=== PATIENT | male | born 1985 | race Caucasian/White ===

== ENCOUNTER 2017-03-11 10:17 | Inpatient (IN) | payer OTHER ==
[~2017-03-11 10:17] MED LIST: PROPOFOL 200 MG INJ
[2017-03-11] MEDS: LACTATED RINGER'S 1,000 ML IV* (11:00)
[2017-03-11] MEDS: CEFAZOLIN 2 GM/50 ML (PMX) 50 ML IVPB (11:00)
[2017-03-11] MEDS ORDERED: SODIUM CL BACTERIOSTATIC 30 ML INJ (11:46)
[2017-03-11] MEDS ORDERED: GELATIN SIZE 100 SPONGE (11:46)
[2017-03-11] MEDS ORDERED: HEPARIN 1000 UNITS/ML 10 ML INJ (11:47)
[2017-03-11] MEDS ORDERED: MIDAZOLAM 1 MG/ML 2 ML INJ (12:07)
[2017-03-11] MEDS ORDERED: ROCURONIUM 50 MG INJ ×2 (12:07→13:19)
[2017-03-11] MEDS ORDERED: ONDANSETRON 4 MG INJ (12:07)
[2017-03-11] MEDS ORDERED: HYDROmorphONE 2 MG/ML SYG (12:07)
[2017-03-11] MEDS ORDERED: METOCLOPRAMIDE 10 MG INJ (12:07)
[2017-03-11] MEDS ORDERED: ROPIVACAINE 0.5 % 30 ML VIAL (12:10)
[2017-03-11] MEDS ORDERED: FENTAnyl 50 MCG/ML VIAL ×3 (12:37→17:00)
[2017-03-11] MEDS ORDERED: SUCCINYLCHOLINE CHLORIDE 100 MG/5 ML SYG IV (13:18)
[2017-03-11] MEDS: CEFAZOLIN 1 GM INJ (13:25)
[2017-03-11] MEDS: HEPARIN 1000 UNITS/ML 10 ML INJ (13:25)
[2017-03-11] MEDS: THROMBIN 5000 UNIT VIAL (13:25)
[2017-03-11] MEDS: SURGIFOAM POWDER 1 GM KIT (13:25)
[2017-03-11] MEDS ORDERED: ACETAMINOPHEN 1000MG/100ML IV 100 ML (14:28)
[2017-03-11] MEDS ORDERED: DIPHENHYDRAMINE 50 MG INJ IV (14:30)
[2017-03-11] MEDS ORDERED: HYDROmorphONE (0.2 MG/ML) 10ML SYG IV (14:30)
[2017-03-11] MEDS: BUPIVACAINE 0.25%/EPI (SDV) 30 ML INJ (15:37)
[2017-03-11] MEDS ORDERED: EPHEDrine SULFATE 50 MG/5 ML SYG (15:37)
[2017-03-11] MEDS ORDERED: AL HYDROX/MG HYDROX/SIMETH 30 ML CUP PO (16:00)
[2017-03-11] MEDS ORDERED: NALOXONE (0.4 MG/ML) INJ IV (16:00)
[2017-03-11] MEDS ORDERED: ONDANSETRON 4 MG INJ IV (16:00)
[2017-03-11] MEDS: MEPERIDINE 25 MG INJ IV (16:12)
[2017-03-11] MEDS: ONDANSETRON 4 MG INJ IV (16:18)
[2017-03-11] MEDS: HYDROmorphONE (0.2 MG/ML) 10ML SYG IV ×4 (16:19→16:43)
[2017-03-11] MEDS: HYDROmorphONE 0.2 MG/ML PCA IV ×2 (16:49→21:34)
[2017-03-11] MEDS ORDERED: FENTAnyl 50 MCG/ML VIAL IV (17:00)
[2017-03-11] MEDS: FENTAnyl 50 MCG/ML VIAL IV ×4 (17:02→18:30)
[2017-03-11] MEDS: CEFAZOLIN 1 GM/50 ML (PMX) 50 ML IVPB (17:06)
[2017-03-11] MEDS: D5W-0.45 NACL + KCL 20 MEQ 1,000 ML IV (20:03)
[2017-03-11] MEDS: DOCUSATE SODIUM 100 MG CAP PO (21:00)
[2017-03-11] MEDS: DIPHENHYDRAMINE 50 MG INJ IV (21:05)
[2017-03-11] MEDS: HYDROCODONE/APAP (10/325) TAB PO (21:52)
[2017-03-11] MEDS: CEPASTAT LOZENGE MT (23:50)
[2017-03-11] MEDS: ZOLPIDEM 5 MG TAB PO (23:50)
[2017-03-12] MEDS: CEFAZOLIN 1 GM/50 ML (PMX) 50 ML IVPB ×2 (00:17→09:00)
[2017-03-12] MEDS: D5W-0.45 NACL + KCL 20 MEQ 1,000 ML IV ×3 (01:30→22:00)
[2017-03-12] MEDS: CARISOPRODOL 350 MG TAB PO ×2 (02:07→09:16)
[2017-03-12] MEDS: DIPHENHYDRAMINE 50 MG INJ IV (02:07)
[2017-03-12] MEDS: CEPASTAT LOZENGE MT ×5 (02:16→20:29)
[2017-03-12] MEDS: ZOLPIDEM 5 MG TAB PO (03:05)
[2017-03-12] MEDS: HYDROmorphONE 0.2 MG/ML PCA IV ×4 (05:35→22:17)
[2017-03-12] MEDS: PANTOPRAZOLE 40 MG INJ IV (05:35)
[2017-03-12] MEDS: HYDROCODONE/APAP (10/325) TAB PO ×2 (06:44→21:39)
[2017-03-12 08:54] LABS: ADD MAN DIFF? NO
[2017-03-12] MEDS: DOCUSATE SODIUM 100 MG CAP PO ×2 (09:02→20:29)
[2017-03-12 09:03] LABS: WHITE BLOOD COUNT 9.9 10^3/ul (4.8-10.8)
[2017-03-12 09:03] LABS: BASOPHILS % 0.3 % (0.0-2.0); EOSINOPHILS # 0.2 10^3/ul (0.0-0.5); EOSINOPHILS % 1.5 % (0.0-7.0); HEMOGLOBIN 13.6 g/dl (14.0-18.0); LYMPHOCYTES # 1.2 10^3/ul (0.8-2.9); LYMPHOCYTES % 11.6 % (15.0-51.0); MEAN CORPUSCULAR HEMOGLOBIN 30.9 pg (29.0-33.0); MEAN CORPUSCULAR VOLUME 90.9 fl (82.0-101.0); MEAN PLATELET VOLUME 10.7 fl (7.4-10.4); MONOCYTE # 0.9 10^3/ul (0.3-0.9); NEUTROPHIL # 7.7 10^3/ul (1.6-7.5); NEUTROPHILS % 77.2 % (39.0-77.0); PLATELET COUNT 187 10^3/UL (140-415); RED CELL DISTRIBUTION WIDTH 12.1 % (11.5-14.5)
[2017-03-12 09:16] LABS: MAGNESIUM 1.8 mg/dl (1.7-2.5)
[2017-03-12] MEDS: HYDROmorphONE 0.5 MG/0.5 ML SYG IV (09:16)
[2017-03-12 09:36] LABS: ALANINE AMINOTRANSFERASE 87 IU/L (13-69); ALBUMIN 3.4 g/dl (3.3-4.9); ALBUMIN/GLOBULIN RATIO 1.36; ALKALINE PHOSPHATASE 57 IU/L (42-121); ANION GAP 10 (8-16); ASPARTATE AMINO TRANSFERASE 41 IU/L (15-46); BILIRUBIN,INDIRECT 1.1 mg/dl (0-1.1); BILIRUBIN,TOTAL 1.1 mg/dl (0.2-1.3); BLOOD UREA NITROGEN 12 mg/dl (7-20); CALCIUM 8.6 mg/dl (8.4-10.2); CARBON DIOXIDE 28 mmol/L (21-31); CHLORIDE 102 mmol/L (97-110); CREATININE 0.84 mg/dl (0.61-1.24); GLUCOSE 133 mg/dl (70-220); POTASSIUM 4.1 mmol/L (3.5-5.1); SODIUM 136 mmol/L (135-144); TOTAL PROTEIN 5.9 g/dl (6.1-8.1)
[2017-03-12] MEDS ORDERED: HYDROCODONE/APAP (10/325) TAB PO (18:00)
[2017-03-13] MEDS: DIPHENHYDRAMINE 50 MG INJ IV ×2 (02:16→15:42)
[2017-03-13] MEDS: PANTOPRAZOLE 40 MG INJ IV (04:12)
[2017-03-13] MEDS: HYDROmorphONE 0.2 MG/ML PCA IV (04:12)
[2017-03-13] MEDS: CEPASTAT LOZENGE MT (04:17)
[2017-03-13 05:30] LABS: ADD MAN DIFF? NO
[2017-03-13 05:35] LABS: WHITE BLOOD COUNT 13.5 10^3/ul (4.8-10.8)
[2017-03-13 05:35] LABS: BASOPHILS % 0.2 % (0.0-2.0); EOSINOPHILS # 0.2 10^3/ul (0.0-0.5); EOSINOPHILS % 1.1 % (0.0-7.0); HEMATOCRIT 42.9 % (42.0-52.0); HEMOGLOBIN 14.3 g/dl (14.0-18.0); LYMPHOCYTES # 1.5 10^3/ul (0.8-2.9); LYMPHOCYTES % 10.7 % (15.0-51.0); MEAN CORPUSCULAR HEMOGLOBIN 30.6 pg (29.0-33.0); MEAN CORPUSCULAR HGB CONC 33.3 g/dl (32.0-37.0); MEAN CORPUSCULAR VOLUME 91.9 fl (82.0-101.0); MEAN PLATELET VOLUME 10.8 fl (7.4-10.4); MONOCYTE # 1.5 10^3/ul (0.3-0.9); MONOCYTES % 11.1 % (0.0-11.0); NEUTROPHIL # 10.3 10^3/ul (1.6-7.5); NEUTROPHILS % 76.5 % (39.0-77.0); PLATELET COUNT 195 10^3/UL (140-415); RED BLOOD COUNT 4.67 10^6/ul (4.70-6.10); RED CELL DISTRIBUTION WIDTH 11.9 % (11.5-14.5)
[2017-03-13 05:49] LABS: ANION GAP 10 (8-16); BLOOD UREA NITROGEN 8 mg/dl (7-20); CARBON DIOXIDE 30 mmol/L (21-31); CHLORIDE 101 mmol/L (97-110); CREATININE 0.88 mg/dl (0.61-1.24); GLUCOSE 115 mg/dl (70-220); MAGNESIUM 1.9 mg/dl (1.7-2.5); POTASSIUM 4.2 mmol/L (3.5-5.1); SODIUM 137 mmol/L (135-144)
[2017-03-13] MEDS: D5W-0.45 NACL + KCL 20 MEQ 1,000 ML IV ×2 (08:00→17:45)
[2017-03-13] MEDS: DOCUSATE SODIUM 100 MG CAP PO ×2 (08:47→20:52)
[2017-03-13] MEDS: HYDROCODONE/APAP (10/325) TAB PO ×4 (08:48→20:53)
[2017-03-13] MEDS ORDERED: HYDROCODONE/APAP (10/325) TAB PO ×2 (10:00)
[2017-03-13] MEDS: CARISOPRODOL 350 MG TAB PO ×2 (10:09→17:44)
[2017-03-13] MEDS: ACETAMINOPHEN 325 MG TAB PO (13:46)
[2017-03-13] MEDS: OXYCODONE/ACETAMINOPHEN (10/325) TAB PO (23:20)
[2017-03-13] MEDS: ZOLPIDEM 5 MG TAB PO (23:20)
[2017-03-14] MEDS: D5W-0.45 NACL + KCL 20 MEQ 1,000 ML IV ×2 (04:00→09:00)
[2017-03-14] MEDS: OXYCODONE/ACETAMINOPHEN (10/325) TAB PO ×4 (04:50→17:04)
[2017-03-14 05:36] LABS: ADD MAN DIFF? NO
[2017-03-14 05:45] LABS: BASOPHILS % 0.3 % (0.0-2.0); EOSINOPHILS # 0.3 10^3/ul (0.0-0.5); EOSINOPHILS % 2.6 % (0.0-7.0); HEMATOCRIT 41.1 % (42.0-52.0); HEMOGLOBIN 13.9 g/dl (14.0-18.0); LYMPHOCYTES # 1.9 10^3/ul (0.8-2.9); MEAN CORPUSCULAR HEMOGLOBIN 30.2 pg (29.0-33.0); MEAN CORPUSCULAR HGB CONC 33.8 g/dl (32.0-37.0); MEAN CORPUSCULAR VOLUME 89.2 fl (82.0-101.0); MEAN PLATELET VOLUME 10.9 fl (7.4-10.4); MONOCYTE # 1.1 10^3/ul (0.3-0.9); MONOCYTES % 9.4 % (0.0-11.0); NEUTROPHIL # 8.5 10^3/ul (1.6-7.5); NEUTROPHILS % 71.1 % (39.0-77.0); PLATELET COUNT 201 10^3/UL (140-415); RED BLOOD COUNT 4.61 10^6/ul (4.70-6.10); RED CELL DISTRIBUTION WIDTH 11.9 % (11.5-14.5)
[2017-03-14 05:45] LABS: WHITE BLOOD COUNT 11.9 10^3/ul (4.8-10.8)
[2017-03-14 05:59] LABS: ANION GAP 16 (8-16); BLOOD UREA NITROGEN 10 mg/dl (7-20); CALCIUM 8.8 mg/dl (8.4-10.2); CARBON DIOXIDE 24 mmol/L (21-31); CHLORIDE 103 mmol/L (97-110); CREATININE 0.77 mg/dl (0.61-1.24); GLUCOSE 110 mg/dl (70-220); POTASSIUM 3.7 mmol/L (3.5-5.1); SODIUM 139 mmol/L (135-144)
[2017-03-14] MEDS: PANTOPRAZOLE 40 MG INJ IV (06:00)
[2017-03-14] MEDS: DOCUSATE SODIUM 100 MG CAP PO ×2 (08:56→21:23)
[2017-03-14] MEDS: CARISOPRODOL 350 MG TAB PO ×2 (14:11→19:46)
[2017-03-14] MEDS: HYDROCODONE/APAP (10/325) TAB PO (21:24)
[2017-03-14] MEDS: ZOLPIDEM 5 MG TAB PO (21:49)
[2017-03-15] MEDS: OXYCODONE/ACETAMINOPHEN (10/325) TAB PO ×6 (01:41→18:56)
[2017-03-15] MEDS: CARISOPRODOL 350 MG TAB PO ×2 (02:40→20:22)
[2017-03-15] MEDS: PANTOPRAZOLE 40 MG INJ IV (05:40)
[2017-03-15] MEDS: DOCUSATE SODIUM 100 MG CAP PO ×2 (09:46→20:22)
[2017-03-15] MEDS: BISACODYL 10 MG SUPP PR (09:46)
[2017-03-15] MEDS: D5W-0.45 NACL + KCL 20 MEQ 1,000 ML IV ×3 (10:00→19:23)
[2017-03-15] MEDS: HYDROCODONE/APAP (10/325) TAB PO (23:03)
[2017-03-15] MEDS: ZOLPIDEM 5 MG TAB PO (23:04)
[2017-03-16] MEDS: OXYCODONE/ACETAMINOPHEN (10/325) TAB PO ×3 (03:04→11:22)
[2017-03-16] MEDS: PANTOPRAZOLE 40 MG INJ IV (05:24)
[2017-03-16] MEDS: D5W-0.45 NACL + KCL 20 MEQ 1,000 ML IV (05:24)
[2017-03-16] MEDS: DOCUSATE SODIUM 100 MG CAP PO (08:50)
[2017-03-16] MEDS: POLYETHYLENE GLYCOL 17 GM PACKET PO (09:00)
== END 2017-03-16 12:55 | disposition home or self-care (01) | DRG 455 ==
LOC: REC 10:17 → MS1 23:29
PROVIDERS: Specialist
PROC: 0SG30A0 Fusion of Lumbosacral Joint with Interbody Fusion Device, Anterior Approach, Anterior Column, Open Approach (ICD-10-PCS; principal; 2017-03-11 12:00)
PROC: 0SG00K1 Fusion of Lumbar Vertebral Joint with Nonautologous Tissue Substitute, Posterior Approach, Posterior Column, Open Approach (ICD-10-PCS; 2017-03-11 12:00)
PROC: 07DR3ZZ Extraction of Iliac Bone Marrow, Percutaneous Approach (ICD-10-PCS; 2017-03-11 12:00)
PROC: 4A11X4G Monitoring of Peripheral Nervous Electrical Activity, Intraoperative, External Approach (ICD-10-PCS; 2017-03-11 12:00)
DX: M43.17 Spondylolisthesis, lumbosacral region (principal); M54.17 Radiculopathy, lumbosacral region; K76.0 Fatty (change of) liver, not elsewhere classified; E66.9 Obesity, unspecified; Z68.36 Body mass index [BMI] 36.0-36.9, adult
CPT/HCPCS: 72100; 80048; 80053; 83735; 85025; 86850; 86900; 86901; 86920; 86999; 97110; 97116; 97162; 97530